=== PATIENT | female | born 1990 | race Caucasian/White ===

== ENCOUNTER 2017-08-16 03:55 | Inpatient (IN) | payer BC ==
[2017-08-16] MEDS ORDERED: Lactated Ringers 1,000 ML IV SCH ×3 (04:15→06:30)
[2017-08-16] MEDS ORDERED: Bupivacaine 0.75%/D5W 2 ML Amp ISPINAL ONE (04:30)
[2017-08-16] MEDS ORDERED: Lidocaine 1% 20 ML MDV INJECT ONE (04:40)
[2017-08-16] MEDS ORDERED: Oxytocin 10 Units/1 ML SDV IM ONE (04:55)
[2017-08-16] MEDS ORDERED: Oxytocin 10 Units/1 ML SDV IV ONE (04:55)
[2017-08-16] MEDS ORDERED: Scopolamine 1.5 MG Transdermal Patch TOP ONE (06:00)
[2017-08-16] MEDS ORDERED: Citric Acid/Sodium Citrate Solution 30 ML Cup PO ONE (06:00)
[2017-08-16] MEDS ORDERED: Sodium Chloride 0.9% 10 ML Syringe FLUSH PRN (06:00)
[2017-08-16] MEDS: Ibuprofen 800 MG Tab PO PRN ×2 (07:15→17:37)
[2017-08-16] MEDS ORDERED: ceFAZolin 2 GM in Premix Bag 1 BAG IV ONE (08:00)
[2017-08-16] MEDS: Acetaminophen/Codeine 300-30 MG Tab PO PRN ×2 (08:29→12:39)
[2017-08-16] MEDS ORDERED: hydrOXYzine HCl 50 MG/ML SDV IM PRN ×2 (09:29)
[2017-08-16] MEDS ORDERED: Naltrexone 50 MG Tab PO SCH (09:29)
[2017-08-16] MEDS ORDERED: Naloxone 0.4 MG/ML SDV IVPUSH PRN ×2 (09:29)
[2017-08-16] MEDS ORDERED: ePHEDrine 50 MG/ML SDV IVPUSH PRN (09:29)
[2017-08-16] MEDS ORDERED: diphenhydrAMINE 50 MG/ML SDV IVPUSH PRN ×2 (09:29)
[2017-08-16] MEDS ORDERED: Naloxone 0.4 MG in Sodium Chloride 0.9% 100 ML IV PRN (09:29)
[2017-08-16] MEDS ORDERED: Nalbuphine 10 MG/1 ML Vial IVPUSH PRN (09:29)
[2017-08-16] MEDS ORDERED: Metoclopramide 10 MG/2 ML SDV IVPUSH PRN (09:29)
[2017-08-16] MEDS ORDERED: Naltrexone 50 MG Tab PO PRN (09:29)
[2017-08-16] MEDS ORDERED: Promethazine 25 MG/ML SDV IV PRN (09:29)
[2017-08-16] MEDS: Docusate Sodium 100 MG Cap PO SCH ×2 (10:14→21:26)
[2017-08-17] MEDS: Ibuprofen 800 MG Tab PO PRN ×3 (03:59→21:21)
[2017-08-17] MEDS: Docusate Sodium 100 MG Cap PO SCH ×2 (08:46→21:21)
[2017-08-17] MEDS: Acetaminophen/Codeine 300-30 MG Tab PO PRN (13:58)
[2017-08-18] MEDS: Acetaminophen/Codeine 300-30 MG Tab PO PRN (04:26)
[2017-08-18] MEDS: Ibuprofen 800 MG Tab PO PRN (10:46)
[2017-08-18] MEDS: Docusate Sodium 100 MG Cap PO SCH (10:46)
[2017-08-18 11:07] VITALS: BP 112/70
--- NOTE | 2017-08-18 14:04 | PCM.PNPP ---
- General Info Date of Service: 08/18/17 Admission Dx/Problem (Free Text): Functional Status: Reports: Pain Controlled, Tolerating Diet - Review of Systems General: Reports: No Symptoms HEENT: Reports: No Symptoms Pulmonary: Reports: No Symptoms Cardiovascular: Reports: No Symptoms - General Info Date of Service: 08/18/17 - Patient Data Vital Signs - Most Recent: Last Vital Signs Temp 97.9 F 08/18/17 10:30 Pulse 77 08/18/17 10:30 Resp 18 08/18/17 10:30 BP 112/70 08/18/17 10:30 Pulse Ox 98 08/18/17 10:30 Weight - Most Recent: 93.894 kg Med Orders - Current: Current Medications Acetaminophen/Codeine Phosphate (Tylenol With Codeine No.3 300mg/30mg) 2 tab PO Q4H PRN PRN Reason: Pain (moderate 4-6) Last Admin: 08/18/17 04:26 Dose: 2 tab Docusate Sodium (Colace) 100 mg PO BID COUNT INCLUDES THE [facility] Last Admin: 08/18/17 10:46 Dose: 100 mg Ephedrine Sulfate (Ephedrine Sulfate) 5 mg IVPUSH ASDIRECTED PRN PRN Reason: HYPOTENSION Lactated Ringer's (Ringers, Lactated) 1,000 mls @ 125 mls/hr IV ASDIRECTED COUNT INCLUDES THE [facility] Last Admin: 08/16/17 07:18 Dose: 125 mls/hr Lactated Ringer's (Ringers, Lactated) 1,000 mls @ 999 mls/hr IV ASDIRECTED COUNT INCLUDES THE [facility] Last Admin: 08/16/17 06:30 Dose: 999 mls/hr Ibuprofen (Motrin) 800 mg PO Q8H PRN PRN Reason: Pain Last Admin: 08/18/17 10:46 Dose: 800 mg Sodium Chloride (Saline Flush) 10 ml FLUSH ASDIRECTED PRN PRN Reason: Keep Vein Open Discontinued Medications Bupivacaine HCl/Dextrose (Marcaine 0.75% Spinal) 0.5 ml ISPINAL .STK-MED ONE Stop: 08/16/17 04:31 Citric Acid/Sodium Citrate (Bicitra Solution) 30 ml PO ONETIME ONE Stop: 08/16/17 06:01 Last Admin: 08/16/17 07:46 Dose: Not Given Cefazolin Sodium/Dextrose 2 gm (/ Premix) 50 mls @ 100 mls/hr IV ONETIME ONE Stop: 08/16/17 08:29 Lactated Ringer's (Ringers, Lactated) 1,000 mls @ 999 mls/hr IV .BOLUS BETHANIE Last Admin: 08/16/17 04:20 Dose: 999 mls/hr Lidocaine HCl (Xylocaine 1%) 20 ml INJECT ONETIME ONE Stop: 08/16/17 04:41 Last Admin: 08/16/17 04:40 Dose: 20 ml Miscellaneous Information (Remove Patch) 1 ea TRDERM ONETIME ONE Stop: 08/17/17 09:01 Oxytocin (Pitocin) 10 unit IM ONETIME ONE Stop: 08/16/17 04:56 Last Admin: 08/16/17 04:58 Dose: 10 unit Oxytocin (Pitocin) 20 unit IV ONETIME ONE Stop: 08/16/17 04:56 Last Admin: 08/16/17 05:02 Dose: 20 unit Scopolamine (Transderm-Scop) 1.5 mg TOP ONETIME ONE Stop: 08/16/17 06:01 Last Admin: 08/16/17 07:46 Dose: Not Given - Infant Interaction Disposition, : in Room with Family Feeding: Attempted ; Nursed Fair/Poor Support Person: - Recovery Exam Fundal Tone: Firm Fundal Level: At Umbilicus Fundal Placement: Midline Lochia Amount: Small Lochia Color: Rubra/Red Perineum Description: Edematous Episiotomy/Laceration: Approximated Bladder Status: Voiding Urinary Elimination: Voided - Exam General: Alert, Oriented HEENT: Pupils Equal Neck: Supple Lungs: Clear to Auscultation, Normal Respiratory Effort Cardiovascular: Regular Rate, Regular Rhythm GI/Abdominal Exam: Normal Bowel Sounds, Soft, Non-Tender, No Organomegaly, No Distention, No Abnormal Bruit, No Mass, Pelvis Stable Extremities: Normal Inspection, Normal Range of Motion, Non-Tender, No Pedal Edema, Normal Capillary Refill Skin: Warm, Dry, Intact Wound/Incisions: Healing Well Neurological: No New Focal Deficit Psy/Mental Status: Alert, Normal Affect, Normal Mood - Problem List & Annotations (1) , delivered SNOMED Code(s): 533327584 Code(s): O34.219 - MATERNAL CARE FOR UNSP TYPE SCAR FROM PREVIOUS DEL Status: Acute Current Visit: Yes (2) Anemia, blood loss SNOMED Code(s): 125759782 Code(s): D50.0 - IRON DEFICIENCY ANEMIA SECONDARY TO BLOOD LOSS (CHRONIC) Status: Acute Current Visit: Yes - Problem List Review Problem List Initiated/Reviewed/Updated: Yes - Plan Plan:: DC home today. Is on Ferrous Supplentataion. Folloow up with PCP 2 weeks.
--- NOTE | 2017-08-19 13:19 | DEL ---
DATE OF DELIVERY: 08/16/2017 HISTORY OF PRESENT ILLNESS: Silvia Davila is a 26-year-old, 2, para 1, AB 0, female, resident of [place], [place], who was admitted to [facility] in active labor. She has been planned for today. Thirty-nine weeks' gestation. She noted some cramps and discomfort beginning about midnight, they were intermittent, she spoke with nursing staff, observation appropriate with planned admission. Contractions began in earnest, hurried trip to the hospital. On admission, heart tones were satisfactory, maternal vital signs were stable, she was completely dilated. Elected for delivery. Risks and benefits accordingly. Anesthesia and surgeon of record were in-house for observation in case need for surgical delivery was necessary. Second stage of labor worked well, did have a quick intrathecal for analgesic benefit. The patient saw great benefit. Over the course of about half an hour, pushed with good maternal effort. When , a midline episiotomy was performed and, 2 pushes later, delivered in [place] presentation over a midline episiotomy. Nares, mouth, and oropharynx were suctioned, no cord for reduction, delivered without consequence or shoulder dystocia. weight 8 pounds and 14 ounces, score 9 and 9. Child, when the cord was stripped towards the baby, was placed on mom's tummy. For 45 seconds, the cord was observed, pulse was absent, cord clamped, routine resuscitation. Three cord vessels were intact. There was spontaneous placental separation, three cord vessels intact. She was given intramuscular Pitocin and intravenous Pitocin. There was some moderate uterine atony, required massage, and Pitocin as provided. Using right angles, cervix was viewed and no lacerations. Gentle exam into the lower uterine segment revealed no defect. There was a single bleeder on the left vaginal wall, which was sutured with a single [id number] suture. Infiltrated with lidocaine, and repaired in complex fashion with 2-0 chromic suture. No complicating issues. Blood loss moderate at 250 to 300 mL. We will observe accordingly. ASSESSMENT: 1. Term 39 weeks' gestation. Planned , converted to vaginal after cesarian section, given circumstances and timing of delivery. 2. Male , weight 8 pounds 14 ounces, score 9 and 9. 3. Planned nursing. PLAN: Routine maternal course, no complicating issues. We will keep her at bed rest for short time, ambulate as appropriate, watch closely for issues of her hemoglobin. /[id number] RUDOLPH/AYANNA
--- NOTE | 2017-08-19 14:46 | DISCH ---
DISCHARGE DATE: 08/17/2017 HOSPITAL COURSE: Silvia Davila is a 26-year-old, 2, para 2 female, 1- day . She had a yoon course with moderate bleeding, hemoglobin yesterday 8.4 and today at 8.0. Did have some blood pressure related symptoms yesterday, but through the day, drinking fluids well, blood pressure is improved. No tachycardia. Ambulating well without difficulty. Voiding well without difficulty. Comfortable with tub bath. Anxious to be discharged today. PHYSICAL EXAMINATION: VITAL SIGNS: Stable. NECK: Benign. Thyroid small. CHEST: Clear. HEART: Regular. ABDOMEN: Uterus is U-2. Perineum intact. Moderate hemorrhoids. ASSESSMENT: day #2, no problems, except for moderate blood loss, hemoglobin 8.0. PLAN: Discharge today with lengthy instructions. DISCHARGE MEDICATIONS: 1. Ibuprofen 800 mg t.i.d. p.r.n. for pain. 2. Tylenol No. 3, one or two q.i.d. p.r.n. for pain. 3. Ferrous gluconate 324 one p.o. b.i.d., low iron. 4. vitamin 1 daily. DISCHARGE INSTRUCTIONS: Complementary care and well being. Restrictions and limitations accordingly. FOLLOWUP: Six weeks' time. /[id number] RUDOLPH/AYANNA
== END 2017-08-18 14:40 | disposition home or self-care (01) | DRG 560 ==
LOC: FB.OB 03:55
PROVIDERS: ADMIT Family Medicine; ATTEND Family Medicine
PROC: 10E0XZZ Delivery of Products of Conception, External Approach (ICD-10-PCS; principal; 2017-08-16)
PROC: 0W8NXZZ Division of Female Perineum, External Approach (ICD-10-PCS; 2017-08-16)
PROC: 00HU33Z Insertion of Infusion Device into Spinal Canal, Percutaneous Approach (ICD-10-PCS; 2017-08-16)
DX: O34.211 Maternal care for low transverse scar from previous cesarean delivery (principal); Z3A.39 39 weeks gestation of pregnancy; Z37.0 Single live birth; O72.1 Other immediate postpartum hemorrhage; N85.8 Other specified noninflammatory disorders of uterus
CPT/HCPCS: 36415; 59300; 59409; 85018; A9270-GY; J2590; J7120

== ENCOUNTER 2017-08-24 13:59 | Emergency (ER) | payer BC ==
[2017-08-24] MEDS ORDERED: Ketorolac 60 MG/2 ML SDV IM ONE (15:59)
--- NOTE | 2017-08-24 16:03 | EDM.PDOC ---
ED HPI GENERAL MEDICAL PROBLEM - General Chief Complaint: LOGISTIC SPECIALIST Problem Stated Complaint: CRAMPING, BLOOD, LOWER ABDOMINAL PAIN Time Seen by Provider: 08/24/17 14:20 Source of Information: Reports: Patient, Family History Limitations: Reports: No Limitations - History of Present Illness INITIAL COMMENTS - FREE TEXT/NARRATIVE: c/o inc'd abd pain x 24h pt with 8d ago, had a scheduled repeat c/s but came in 1d early fully dilated and pushing has done will until yesterday when she had inc'd cramping, had difficulty sleeping last night, ibuprofen and APAP has not seemed to help had T 100 at home altho VS wnl here did have one gush of blood at home yesterday, otherwise seems to have the same amount of lochia today did have UTI x 1 with , otherwise both her pregnancies have been uncomplicated here with vag u/s today shows nl ovaries and nl PP uterus without mass or fluid collection vag secretions show inc'd WBC hx and PE are c/w early endometritis altho WBC wnl and there is no L shift and no temp lower abdomen Pain Score (Numeric/FACES): 5 - Related Data Allergies Allergy/AdvReac Type Severity Reaction Status Date / Time No Known Allergies Allergy Verified 08/24/17 14:29 Home Meds: Home Meds Vit #108/Iron/FA [ One Tablet] 1 each PO DAILY 05/11/15 [ History] Amoxicillin 500 mg PO TID #19 capsule 08/24/17 [Rx] metroNIDAZOLE [Metronidazole] 500 mg PO TID #19 tablet 08/24/17 [Rx] traMADol HCl [Tramadol HCl] 50 mg PO Q6H PRN #6 tablet 08/24/17 [Rx] Past Medical History Other HEENT History: appendectomy 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 Musculoskeletal History: Reports: None Hematologic History: Reports: Anemia - Infectious Disease History Infectious Disease History: Reports: Chicken Pox - Past Surgical History HEENT Surgical History: Reports: Adenoidectomy, Tonsillectomy GI Surgical History: Reports: Appendectomy Musculoskeletal Surgical History: Reports: Arthroscopic Knee Social & Family History - Family History Family Medical History: Noncontributory - Tobacco Use Smoking Status *Q: Never Smoker Second Hand Smoke Exposure: No - Caffeine Use Caffeine Use: Reports: Coffee Other Caffeine Use: 2 CUPS /DAY - Recreational Drug Use Recreational Drug Use: No ED ROS GENERAL - Review of Systems Review Of Systems: See Below Constitutional: Reports: Fever HEENT: Reports: No Symptoms Respiratory: Reports: No Symptoms Cardiovascular: Reports: No Symptoms Endocrine: Reports: No Symptoms GI/Abdominal: Reports: Abdominal Pain, Nausea. Denies: Vomiting : Reports: No Symptoms Musculoskeletal: Reports: No Symptoms Skin: Reports: No Symptoms Neurological: Reports: No Symptoms Psychiatric: Reports: No Symptoms Hematologic/Lymphatic: Reports: No Symptoms Immunologic: Reports: No Symptoms ED EXAM, GI/ABD - Physical Exam Exam: See Below Exam Limited By: No Limitations General Appearance: Alert, WD/WN, No Apparent Distress, Other (alert, nontoxic, moves easily) Ears: Normal External Exam Nose: Normal Inspection, Normal Mucosa, No Blood Throat/Mouth: Normal Inspection, Normal Lips, Normal Teeth, Normal Gums, Normal Oropharynx, Normal Voice, No Airway Compromise Head: Atraumatic, Normocephalic Neck: Normal Inspection, Supple, Non-Tender, Full Range of Motion Respiratory/Chest: No Respiratory Distress, Lungs Clear, Normal Breath Sounds, No Accessory Muscle Use, Chest Non-Tender Cardiovascular: Normal Peripheral Pulses GI/Abdominal Exam: No Distention, No Mass, Other (fundus several cm below umbilicus, 1+ tenderness of uterus that is inc'd c/w expected, mild tender elsewhere in abd, no guard, no rebound, good BS x 4) (Female) Exam: Other (parous cx, no CMT, no pus at cx, however there is increased maroon serous secretions in vault which showed inc'd WBC under microscope, healing episiotomy noted without dehisence or infection, uterus was tender the hand on the abd but not the 2 intravaginal fingers, no discrete masses, nl enlarged uterus) Back Exam: Normal Inspection, Full Range of Motion, NT Extremities: Normal Inspection, Normal Range of Motion, Non-Tender, No Pedal Edema Neurological: Alert, Oriented, CN II-XII Intact, Normal Cognition, No Motor/ Sensory Deficits Psychiatric: Normal Affect, Normal Mood Skin Exam: Warm, Dry, Intact, Normal Color, No Rash Lymphatic: No Adenopathy Course - Vital Signs Last Recorded V/S: Last Vital Signs Temp 36.7 C 08/24/17 14:15 Pulse 81 08/24/17 14:15 Resp 18 08/24/17 14:15 BP 127/80 08/24/17 14:15 Pulse Ox 99 08/24/17 14:15 - Orders/Labs/Meds Orders: Active Orders 24 hr Category Date Time Status Pelvis Non OB Ltd [US] Stat Exams 08/24/17 16:24 Taken Transvaginal Non OB [US] Stat Exams 08/24/17 17:12 Taken CULTURE GENITAL [RM] Stat Lab 08/24/17 16:20 Received CULTURE URINE [RM] Stat Lab 08/24/17 16:20 Received Amoxicillin [Amoxil] Med 08/24/17 18:15 Active 500 mg PO Q8H metroNIDAZOLE [Flagyl] Med 08/24/17 18:15 Active 500 mg PO Q8H traMADol [Ultram] Med 08/24/17 18:08 Ordered 50 mg PO Q8H PRN Medication Orders Amoxicillin (Amoxil) 500 mg PO Q8H BETHANIE Stop: 08/25/17 08:00 Last Admin: 08/24/17 18:06 Dose: 500 mg Metronidazole (Flagyl) 500 mg PO Q8H BETHANIE Stop: 08/25/17 08:00 Last Admin: 08/24/17 18:06 Dose: 500 mg Tramadol HCl (Ultram) 50 mg PO Q8H PRN PRN Reason: Pain Stop: 08/25/17 08:00 Labs: Laboratory Tests 08/24/17 08/24/17 08/24/17 Range/Units 16:20 16:35 16:35 WBC 11.3 (4.5-12.0) X10-3/uL RBC 2.97 L (3.23-5.20) x10(6)uL Hgb 9.0 L (11.5-15.5) g/dL Hct 27.2 L (30.0-51.3) % MCV 91.4 (80-96) fL MCH 30.1 (27.7-33.6) pg MCHC 32.9 (32.2-35.4) g/dL RDW 13.1 (11.5-15.5) % Plt Count 389 H (125-369) X10(3)uL MPV 7.3 L (7.4-10.4) fL Neut % (Auto) 75.7 (46-82) % Lymph % (Auto) 17.5 (13-37) % [place] % (Auto) 4.7 (4-12) % Eos % (Auto) 2 (1.0-5.0) % Baso % (Auto) 0 (0-2) % Neut # (Auto) 8.6 H (1.6-8.3) # Lymph # (Auto) 2.0 (0.6-5.0) # [place] # (Auto) 0.5 (0.0-1.3) # Eos # (Auto) 0.2 (0.0-0.8) # Baso # (Auto) 0.0 (0.0-0.2) # Sodium 144 (135-145) mmol/L Potassium 3.9 (3.5-5.3) mmol/L Chloride 108 (100-110) mmol/L Carbon Dioxide 25 (21-32) mmol/L BUN 15 (7-18) mg/dL Creatinine 1.1 H (0.55-1.02) mg/dL Est Cr Clr Drug Dosing 76.81 mL/min Estimated GFR (MDRD) 59 L (>60) BUN/Creatinine Ratio 13.6 (9-20) Glucose 87 (80-116) mg/dL Calcium 8.6 (8.6-10.2) mg/dL Total Bilirubin 0.2 (0.1-1.3) mg/dL AST 16 (5-25) IU/L ALT 20 (12-36) U/L Alkaline Phosphatase 37 L (56-112) IU/L Total Protein 6.1 (6.0-8.0) g/dL Albumin 2.8 L (3.5-5.2) g/dL Globulin 3.3 g/dL Albumin/Globulin Ratio 0.9 Urine Color Yellow (YELLOW) Urine Appearance Clear (CLEAR) Urine pH 8.0 H (5.0-6.5) Ur Specific [place] 1.010 (1.010-1.025) Urine Protein Negative (NEGATIVE) mg/dL Urine Glucose (UA) Normal (NEGATIVE) mg/dL Urine Ketones Negative (NEGATIVE) mg/dL Urine Occult Blood Large H (NEGATIVE) Urine Nitrite Negative (NEGATIVE) Urine Bilirubin Negative (NEGATIVE) Urine Urobilinogen Normal (NEGATIVE) mg/dL Ur Leukocyte Esterase Large H (NEGATIVE) Urine RBC 0-5 (0) Urine WBC 10-20 H (0) Ur Squamous Epith Cells Occasional (NS,R,O) Urine Bacteria Few H (NS) Meds: Medications Generic Name Dose Route Start Last Admin Trade Name Freq PRN Reason Stop Dose Admin Amoxicillin 500 mg 08/24/17 18:15 08/24/17 18:06 Amoxil PO 08/25/17 08:00 500 mg Q8H BETHANIE Administration Metronidazole 500 mg 08/24/17 18:15 08/24/17 18:06 Flagyl PO 08/25/17 08:00 500 mg Q8H BETHANIE Administration Tramadol HCl 50 mg 08/24/17 18:08 Ultram PO 08/25/17 08:00 Q8H PRN Pain Discontinued Medications Generic Name Dose Route Start Last Admin Trade Name Freq PRN Reason Stop Dose Admin Ketorolac Tromethamine 60 mg 08/24/17 15:59 08/24/17 17:00 Toradol IM 08/24/17 16:00 60 mg ONETIME ONE Administration Departure - Departure Time of Disposition: 18:00 Disposition: Home, Self-Care 01 Condition: Good Clinical Impression: endometritis - Discharge Information Prescriptions: Amoxicillin 500 mg PO TID #19 capsule metroNIDAZOLE [Metronidazole] 500 mg PO TID #19 tablet traMADol HCl [Tramadol HCl] 50 mg PO Q6H PRN #6 tablet PRN Reason: Pain Instructions: Endometritis Referrals: Sae Meadows MD [Primary Care Provider] - Forms: ED Department Discharge Additional Instructions: For infection, take amoxicillin 500 mg 1 tab 3 times a day for 7 days. For infection, take metronidazole 500 mg 1 tab 3 times a day for 7 days. No alcohol. For cramping and pain, take ibuprofen 200 mg 3 tabs and acetaminophen 500 mg 2 tabs with meals and bedtime today and tomorrow, longer if needed. For pain, take tramadol 50 mg 1 tab 4 times a day as needed. See Dr Meadows in 2-3 days. Return to ED if you are feeling worse. Call your Physician or Return to Emergency Department if: * Your condition worsens in any way. * You develop fever greater than 100.4. * You have vomitting that does not stop with medications. * You have pain that is not controlled with medications. - My Orders Last 24 Hours: My Active Orders 08/24/17 16:20 CULTURE GENITAL [RM] Stat CULTURE URINE [RM] Stat 08/24/17 16:24 Pelvis Non OB Ltd [US] Stat 08/24/17 17:12 Transvaginal Non OB [US] Stat 08/24/17 18:08 traMADol [Ultram] 50 mg PO Q8H PRN 08/24/17 18:15 Amoxicillin [Amoxil] 500 mg PO Q8H metroNIDAZOLE [Flagyl] 500 mg PO Q8H - Assessment/Plan Last 24 Hours: My Active Orders 08/24/17 16:20 CULTURE GENITAL [RM] Stat CULTURE URINE [RM] Stat 08/24/17 16:24 Pelvis Non OB Ltd [US] Stat 08/24/17 17:12 Transvaginal Non OB [US] Stat 08/24/17 18:08 traMADol [Ultram] 50 mg PO Q8H PRN 08/24/17 18:15 Amoxicillin [Amoxil] 500 mg PO Q8H metroNIDAZOLE [Flagyl] 500 mg PO Q8H
[2017-08-24] MEDS ORDERED: traMADol 50 MG Tab PO PRN (18:08)
[2017-08-24] MEDS ORDERED: Amoxicillin 500 MG Cap PO SCH (18:15)
[2017-08-24] MEDS ORDERED: metroNIDAZOLE 500 MG Tab PO SCH (18:15)
[2017-08-24 18:27] VITALS: BP 132/83
--- NOTE | 2017-08-26 12:35 | US ---
INDICATION: x1 week, severe right-sided pain, question retrained products of conception. ULTRASOUND PELVIC, NON-OB LIMITED: Multiple ultrasonic images were obtained with transabdominal probe. The bladder was empty. Detail is somewhat limited. The uterus is enlarged, , as expected. Heterogeneous appearance is noted, also likely within normal limits. The endometrial cavity is somewhat prominent. No definite retained products of conception could be identified. However, a follow-up study may be warranted to confirm involution of the endometrium. No unusual blood flow was seen. The uterus measured 13.5 x 7.5 x 10.1 cm with a 12.5-mm endometrial cavity. The endometrium was not ideally seen and endovaginal probe ultrasound may be helpful for further evaluation. No gross abnormality of the ovaries was seen. They measured 5.4 x 2.5 x 1.5 cm on the right, and 2.5 x 2.1 x 1.7 cm on the left. No adnexal mass lesions or free fluid collections were identified. IMPRESSION: Endometrial cavity not ideally visualized. No gross retained products of conception identified. The uterus is enlarged and heterogeneous, compatible with . Transvaginal probe ultrasound will be obtained for further evaluation of the endometrium. INDICATION: one week. Pain, question retained products of conception - need better visualization of the endometrial cavity and myometrium. ULTRASOUND TRANSVAGINAL NON-OB: Utilizing transvaginal probe, multiple ultrasonic images revealed the endometrial cavity to be somewhat better visualized. There is some hypoechoic area and it is heterogeneous in the endometrium area. Cannot exclude some blood clots or even minimal retained products of conception. However, no gross retained products of conception were identified. Follow-up study is recommended to show further clearing of the endometrial cavity. IMPRESSION: Cannot exclude a small amount of retained products of conception. Follow-up is recommended to show further clearing of the endometrium. Report faxed to Dr. Meadows on 08/26/2017 at 1235 hours. [facility]
== END 2017-08-24 18:24 | disposition home or self-care (01) ==
LOC: FB.ED 13:59
DX: O86.12 Endometritis following delivery (principal); O99.13 Other diseases of the blood and blood-forming organs and certain disorders involving the immune mechanism complicating the puerperium; D64.9 Anemia, unspecified; Z90.49 Acquired absence of other specified parts of digestive tract
CPT/HCPCS: 36415; 76830; 76857; 80053; 81001; 85025; 87070; 87086; 87088; 96372; 99284; A9270; J1885; 87186